=== PATIENT | male | born 2000 | race Caucasian/White ===

== ENCOUNTER 2024-01-11 05:41 | Emergency (ER) | payer MEDICAID ==
[~2024-01-11] VITALS: Ht 170.2 cm; Wt 72.6 kg
[2024-01-11 05:47] VITALS: BP 137/87; PULSE 89; RESP 20; TEMP 98; O2SAT 98
[2024-01-11 05:56] VITALS: RESP 20
[2024-01-11] MEDS: LIDOCAINE MPF 1% 10 MG/ML VIAL INJ ONE (07:17)
[2024-01-11] MEDS: BACITRACIN OINT 500 UNITS/GM PKT TP ONE (07:44)
[2024-01-11 07:50] VITALS: BP 110/70; PULSE 65; TEMP 98.4; O2SAT 98
== END 2024-01-11 07:40 | disposition home or self-care (01) ==
LOC: MED 05:41
DX: S61.211A Laceration without foreign body of left index finger without damage to nail, initial encounter (principal); W25.XXXA Contact with sharp glass, initial encounter; Y93.89 Activity, other specified; Y92.89 Other specified places as the place of occurrence of the external cause; Y99.8 Other external cause status
CPT/HCPCS: 12001; 90471; 90715; 99283; J2001

== ENCOUNTER 2024-01-20 11:32 | Emergency (ER) | payer MEDICAID ==
[~2024-01-20] VITALS: Ht 170.2 cm; Wt 72.6 kg
[2024-01-20 11:45] VITALS: BP 114/71; PULSE 65; RESP 19; TEMP 97.7; O2SAT 100
== END 2024-01-20 12:20 | disposition home or self-care (01) ==
LOC: MED 11:32
DX: S61.211D Laceration without foreign body of left index finger without damage to nail, subsequent encounter (principal); Z48.02 Encounter for removal of sutures; Z79.899 Other long term (current) drug therapy; X58.XXXD Exposure to other specified factors, subsequent encounter
CPT/HCPCS: 99281